=== PATIENT | male | born 1960 | race Caucasian/White ===

== ENCOUNTER 2017-04-16 15:29 | Outpatient (CLI) | payer OTHER ==
--- NOTE | 2017-04-16 16:26 | DIAGNOSTIC IMAGING REPORT ---
PROCEDURE: US SOFT TISSUE ANYWHERE INDICATION: Palpable area right posterior neck. TECHNIQUE: Cool scale and color Doppler sonographic images of the right posterior neck were obtained COMPARISON: None. FINDINGS: There is a 3.0 x 2.7 x 1.4 cm ovoid heterogeneous hypoechoic mass with through transmission in the subcutaneous tissues of the right posterior neck. No evidence of vascularity. Findings are compatible with a benign sebaceous cyst. IMPRESSION: 1. There is a 3.0 x 2.7 x 1.4 cm ovoid mass in the subcutaneous tissues of the right posterior neck. Findings are compatible with a benign sebaceous cyst. 2. Findings discussed with the patient.
== END 2017-04-16 23:00 ==
LOC: US SRH 15:29
DX: L72.3 Sebaceous cyst (principal)